=== PATIENT | female | born 1975 | race African-American/Black ===

== ENCOUNTER 2016-07-03 12:56 | Emergency (ER) | payer OTHER ==
[2016-07-03 14:15] VITALS: BP 136/77
[2016-07-03] MEDS ORDERED: Phenazopyridine TAB* 100 MG PO ONE (15:20)
--- NOTE | 2016-07-03 15:49 | UC ---
Complaint Female HPI - HPI Summary HPI Summary: PATIENT IS A HEALTHY 41YO F WHO PRESENTS WITH UTI SYMPTOMS INCLUDING BURNING, URGENCY, FREQUENCY X 3 DAYS. SHE STATES SHE HAS HAD BACTRIM PRESCRIBED TO HER 1 YEAR AGO FOR A UTI BUT DID NOT TAKE THE FULL COURSE AND HAS 10 PILLS LEFT. SHE TOOK ONE DOSE YESTERDAY AFTERNOON, AND 1 THIS MORNING, BUT STATES THE PAIN IS STILL THERE. SHE DENIES FEVER, CHILLS OR SWEATS. DENIES FLANK PAIN AND HISTORY OF KIDNEY STONES OR KIDNEY INFECTION. SHE IS A SMOKER AND IS CURRENTLY ON CHANTIX WHICH HAS DECREASED HER HABIT TO ONCE PER DAY. DENIES STD HISTORY OR POSSIBILITY OF . SHE HAS HAD NO ABNORMAL VAGINAL DISCHARGE AND IS CURRENTLY ON HER MENSES. - History Of Current Complaint Hx Obtained From: Patient Hx Last Menstrual Period: 07/02/16 ?: No Onset/Duration: Gradual Onset Timing: Constant Severity Initially: Moderate Severity Currently: Moderate Pain Intensity: 3 Pain Scale Used: 0-10 Numeric Character: Dull, Burning, Cramping Aggravating Factor(s): Urination Associated Signs And Symptoms: Positive: Negative - Risk Factors Ectopic Risk Factor: Maternal Age ^ 30 Ovarian Torsion Risk Factor: Reproductive Age <Laila Whittington - Last Filed: 07/03/16 15:44> <Emma Nguyen - Last Filed: 07/04/16 06:58> - History Of Current Complaint Chief Complaint: UCGU Stated Complaint: UTI COMPLAINT Time Seen by Provider: 07/03/16 14:15 - Allergies/Home Medications Allergies/Adverse Reactions: Allergies Allergy/AdvReac Type Severity Reaction Status Date / Time No Known Allergies Allergy Verified 07/03/16 14:15 PMH/Surg Hx/FS Hx/Imm Hx Previously Healthy: Yes Cancer History Of: Denies: Breast Cancer - Surgical History Surgical History: None - Family History Known Family History: Positive: Unknown - Social History Occupation: Employed Full-time Lives: With Family Alcohol Use: Rare Substance Use Type: Marijuana Smoking Status (MU): Light Every Day Tobacco Smoker Type: Cigarettes Amount Used/How Often: 2-3 day Have You Smoked in the Last Year: Yes - Immunization History Most Recent Influenza Vaccination: 2013 Most Recent Tetanus Shot: unknown Most Recent Pneumonia Vaccination: never <Laila Whittington - Last Filed: 07/03/16 15:44> Review of Systems Constitutional: Negative Respiratory: Negative Cardiovascular: Negative Genitourinary: Dysuria, Frequency, Urgency Motor: Negative Neurovascular: Negative Neurological: Negative Psychological: Negative All Other Systems Reviewed And Are Negative: Yes <Laila Whittington - Last Filed: 07/03/16 15:44> Physical Exam Triage Information Reviewed: Yes Appearance: Well-Appearing, No Pain Distress, Well-Nourished Vital Signs: Initial Vital Signs Temp 98.7 F 07/03/16 14:09 Pulse 99 07/03/16 14:09 Resp 18 07/03/16 14:09 BP 136/77 07/03/16 14:09 Pulse Ox 99 07/03/16 14:09 Vital Signs Reviewed: Yes Eye Exam: Normal Eyes: Positive: Conjunctiva Clear ENT Exam: Normal Neck exam: Normal Neck: Positive: Supple, Nontender Respiratory: Positive: Chest non-tender, Lungs clear Cardiovascular Exam: Normal Cardiovascular: Positive: RRR Neurological Exam: Normal Neurological: Positive: Alert Psychological: Positive: Normal Response To Family, Age Appropriate Behavior Skin Exam: Normal <Laila Whittington - Last Filed: 07/03/16 15:44> Vital Signs: Initial Vital Signs Temp 98.7 F 07/03/16 14:09 Pulse 99 07/03/16 14:09 Resp 18 07/03/16 14:09 BP 136/77 07/03/16 14:09 Pulse Ox 99 07/03/16 14:09 <Emma Nguyen - Last Filed: 07/04/16 06:58> Complaint Female Dx - Course Course Of Treatment: UA performed. WBC and leuks seen. Labs WNL. Patient experiencing urgency, frequency and pain on urination. Dark urine noted. No abnormal vaginal discharge or bleeding. No CVA tenderness bilaterally. PATIENT WAS GIVEN PYRIDIUM 200MG IN OFFICE FOR RELIEF OF PAIN. PRESCRIPTION SENT. SHE IS CURRENTLY TAKING BACTRIM (WHICH SHE ALREADY HAD AT HOME FROM A PREVIOUS INFECTION) AND IT IS NOT YET . SHE IS ENCOURAGED TO CONTINUE TO TAKE BACTRIM X 5 DAYS AND USE PYRIDIUM IF NEEDED FOR UTI PAIN. RETURN IF SYMPTOMS BECOME WORSE OR FEVER, CHILLS SWEATS DEVELOP. - Differential Dx/Diagnosis Differential Diagnosis/HQI/PQRI: Ovarian Cyst, Pelvic Inflammatory Disease, , Urinary Tract Infection Provider Diagnoses: URINARY TRACT INFECTION <Laila Whittington - Last Filed: 07/03/16 15:44> Discharge <NelsyLaila - Last Filed: 07/03/16 15:44> <Emma Nguyen - Last Filed: 07/04/16 06:58> - Discharge Plan Condition: Stable Disposition: HOME Prescriptions: Phenazopyridine TAB* [Pyridium 100 mg TAB*] 100 mg PO TID #12 tab MDD 3 Patient Education Materials: Urinary Tract Infection in Women (ED) Forms: *Work Release Referrals: Neri Corona MD [Primary Care Provider] - Additional Instructions: Take Bactrim twice daily for 5 days. Take the pyridium medication as needed for bladder pain. Dx. Urinary Tract Infection Drink plenty of fluids. Supplement with cranberry or kimble juice. You may also take an over the counter cranberry supplement. If you have any questions about this, you may ask your pharmacist. If your symptoms have not improved in 1-2 days, if you develop fever, sweats or chills, please go to your emergency room, or call your PCP. Antibiotics were prescribed to you. Please take as directed. Supplement with over the counter probiotics on the opposite schedule of your antibiotic to prevent secondary infections. Do not take together as they may counteract each other. Pyridium: This medication is used to treat pain, burning, increased urination, and increased urge to urinate. These symptoms are usually caused by infection, injury, surgery, catheter, or other conditions that irritate the lower urinary tract. Pyridium will treat the symptoms of a urinary tract infection, but this medication does not treat the actual infection. Take the antibiotic that your doctor prescribes to treat your infection. Pyridium will most likely darken the color of your urine to an orange or red color. This is a normal effect and is not cause for alarm unless you have other symptoms such as pale or yellowed skin, fever, stomach pain, nausea, and vomiting. Darkened urine may also cause stains to your underwear, which may or may not be removed by laundering. It can also permanently stain soft contact lenses, and you should not wear them while taking this medicine. Attestation Statement User Type: Provider - I was available for consult. This patient was seen by the advanced practice provider. The patient was not presented to, seen by, or examined by me.-Janie <Emma Nguyen - Last Filed: 07/04/16 06:58>
== END 2016-07-03 15:54 | disposition home or self-care (01) ==
LOC: UCEAST 12:56
DX: R30.0 Dysuria (principal); N39.0 Urinary tract infection, site not specified; F17.210 Nicotine dependence, cigarettes, uncomplicated
CPT/HCPCS: 81003; 87086; 99212; G0463

== ENCOUNTER 2017-07-20 11:20 | Emergency (ER) | payer OTHER ==
[2017-07-20 12:07] LABS: Urine Appearance Cloudy; Urine Blood Negative (Negative); Urine Color Amber; Urine Ketones Negative (Negative); Urine Protein Negative (Negative); Urine Specific Gravity 1.027 (1.010-1.030); Urine Urobilinogen Positive (Negative)
[2017-07-20] MEDS ORDERED: NS 0.9% 1000 ML* 2,000 ML IV ONE (12:08)
[2017-07-20] MEDS ORDERED: Ondansetron ODT TAB* 4 MG PO ONE (12:08)
[2017-07-20] MEDS ORDERED: Ketorolac INJ* 30 MG/ML 1 ML VIAL IV ONE (12:08)
[2017-07-20 12:27] LABS: ABS Basophils 0.1 10^3/ul (0-0.2); ABS Eosinophils 0.2 10^3/ul (0-0.6); ABS Lymphocytes 3.1 10^3/ul (1.0-4.8); ABS Monocytes 0.8 10^3/ul (0-0.8); ABS Neutrophils 3.8 10^3/ul (1.5-7.7); ABS Nucleated RBC 0 10^3/ul; Eosinophil % 2.3 % (0-6); Hematocrit 37 % (35-47); Hemoglobin 12.3 g/dl (12.0-16.0); Lymphocyte % 39.5 % (25-47); Mean Corpuscular HGB Conc 33 g/dl (31-36); Mean Corpuscular Hemoglobin 29 pg (27-31); Mean Corpuscular Volume 87 fL (80-97); Nucleated Red Blood Cells % 0; Platelet Count 194 10^3/ul (150-450); Red Blood Count 4.28 10^6/ul (4.0-5.4); Red Cell Distribution Width 14 % (10.5-15); White Blood Count 7.9 10^3/ul (3.5-10.8)
--- NOTE | 2017-07-20 12:44 | RAD ---
Indication: Left flank pain. Dual energy PA views of the chest demonstrates no mediastinal shift. Heart is of normal size and configuration. Lung taveras are clear. IMPRESSION: No active cardiopulmonary disease is noted.
[2017-07-20 12:48] LABS: EGFR Non-African American 89.8 (>60)
[2017-07-20 12:50] LABS: INR 0.83 (0.77-1.02)
--- NOTE | 2017-07-20 12:50 | RAD ---
Indication: Left flank pain. CT of the abdomen and pelvis was performed without oral or IV contrast administration. Coronal and sagittal reconstructed images were obtained. The lung bases demonstrate some minimal atelectasis in lung bases. Heart is of normal size without evidence of pericardial effusion. The liver is normal in size. No focal lesions or intrahepatic ductal dilatation is noted. The gallbladder demonstrates no gallstones, pericholecystic fluid or wall thickening. There is no evidence of pancreatic mass or pancreatic ductal dilatation. The spleen is normal in size. No adrenal masses are noted. The kidneys demonstrate no hydronephrosis of either kidney. No hydroureter is noted. No dilated loops of bowel are noted. Aorta and inferior vena cava is unremarkable. No retroperitoneal adenopathy is noted. Dilated loops of bowel are noted. The colon is filled with stool. The uterus is unremarkable. Trace amount of free fluid is noted. No adnexal masses are noted. No hernias are noted. The visualized bony structures are unremarkable. IMPRESSION: Trace fluid fluid in the cul-de-sac. No obstructive uropathy is noted.
[2017-07-20] MEDS ORDERED: cefTRIAXone(*) 1 GM in NS 0.9% 50 ML* 50 ML IVPB ONE (13:26)
[2017-07-20] MEDS ORDERED: HYDROcodone/ACETAMIN 5-325 MG* 1 TAB PO ONE (13:26)
[2017-07-20] MEDS ORDERED: Phenazopyridine TAB* 100 MG PO ONE (13:26)
[2017-07-20] MEDS ORDERED: Sulfamethox/Trimethoprim DS 800/160* TAB PO ONE (13:27)
--- NOTE | 2017-07-20 13:39 | ED ---
[place] Stephanie, scribed for Frankie Farris MD on 07/20/17 at 1211 . Abdominal Pain/Female - HPI Summary HPI Summary: The pt is a 42 y/o F presenting to the ED with c/o L sided flank pain that began on 07/18/17.The pt states her pain radiates across her middle lower back and sometimes to her abdomen. Symptoms include nausea, bloating after PO intake and increased urinary frequency. She denies fever and SOB. Aggravating factors include BM, twisting and movement. She states when her pain is severe it takes her breath away. LKMP was 07/17/17. Her pain is rated as a 5 at the moment and an 8 at its worst. She has been taking ibuprofen every 3 hrs for the last 2 days. - History of Current Complaint Chief Complaint: EDFlankPain Stated Complaint: LT FLANK PAIN Time Seen by Provider: 07/20/17 11:55 Hx Obtained From: Patient Hx Last Menstrual Period: 07/02/16 ?: No Onset/Duration: Gradual Onset, Lasting Days - 3, Still Present Timing: Constant Severity Currently: Moderate Pain Intensity: 5 Pain Scale Used: 0-10 Numeric Location: Flank - L Radiates: Yes Radiates to: Back, LLQ Character: Sharp Aggravating Factor(s): Movement, Other: - twisting, BM Alleviating Factor(s): Nothing Associated Signs and Symptoms: Positive: Nausea, Other: - increased urinary frequency, abd bloating post p/o intake Allergies/Adverse Reactions: Allergies Allergy/AdvReac Type Severity Reaction Status Date / Time No Known Allergies Allergy Verified 07/20/17 11:24 Home Medications: Home Medications Mv-Min/Iron/Folic/Calcium/Vitk [Multivitamin Womens] 1 tab PO DAILY 07/20/17 [ History Confirmed 07/20/17] Omeprazole CAP* [Prilosec CAP* 20 MG] 20 mg PO DAILY 07/20/17 [History Confirmed 07/20/17] PMH/Surg Hx/FS Hx/Imm Hx Sensory History: Denies: Hx Legally Blind EENT History: Denies: Hx Deafness - Cancer History Hx Chemotherapy: No Hx Radiation Therapy: No - Surgical History Surgery Procedure, Year, and Place: NONE Infectious Disease History: No Infectious Disease History: Denies: Traveled Outside the [place] in Last 30 Days - Family History Known Family History: Negative: Renal Disease - Social History Occupation: Employed Full-time Lives: With Family Alcohol Use: Rare Hx Substance Use: Yes Substance Use Type: Reports: Marijuana Hx Tobacco Use: Yes Smoking Status (MU): Light Every Day Tobacco Smoker Type: Cigarettes Amount Used/How Often: 2-3 day Have You Smoked in the Last Year: Yes Review of Systems Negative: Fever Negative: Shortness Of Breath Positive: Abdominal Pain, Nausea, Other - bloating after PO intake Positive: frequency - increased, flank pain - L All Other Systems Reviewed And Are Negative: Yes Physical Exam - Summary Physical Exam Summary: General: Mildly ill-appearing, mild to moderate pain distress Skin: warm, color reflects adequate perfusion, dry Head: normal Eyes: EOMI, JACKELINE ENT: normal Neck: supple, nontender Respiratory: CTA, breath sounds present Cardiovascular: RRR Abdomen: soft, tender in L flank Bowel: present Musculoskeletal: normal, strength/ROM intact Neurological: sensory/motor intact, A&O x3 Psychological: affect/mood appropriate Triage Information Reviewed: Yes Vital Signs On Initial Exam: Initial Vitals Temp Pulse Resp BP Pulse Ox 99.7 F 83 16 129/86 100 07/20/17 11:22 07/20/17 11:22 07/20/17 11:22 07/20/17 11:22 07/20/17 11:22 Vital Signs Reviewed: Yes Diagnostics - Vital Signs Vital Signs Temp Pulse Resp BP Pulse Ox 07/20/17 11:22 99.7 F 83 16 129/86 100 - Laboratory Lab Results: Lab Results 07/20/17 07/20/17 07/20/17 Range/Units 11:55 12:13 12:13 WBC 7.9 (3.5-10.8) 10^3/ul RBC 4.28 (4.0-5.4) 10^6/ul Hgb 12.3 (12.0-16.0) g/dl Hct 37 (35-47) % MCV 87 (80-97) fL MCH 29 (27-31) pg MCHC 33 (31-36) g/dl RDW 14 (10.5-15) % Plt Count 194 (150-450) 10^3/ul MPV 9.0 (7.4-10.4) um3 Neut % (Auto) 47.3 (38-83) % Lymph % (Auto) 39.5 (25-47) % [place] % (Auto) 9.8 H (0-7) % Eos % (Auto) 2.3 (0-6) % Baso % (Auto) 1.1 (0-2) % Absolute Neuts (auto) 3.8 (1.5-7.7) 10^3/ul Absolute Lymphs (auto) 3.1 (1.0-4.8) 10^3/ul Absolute Monos (auto) 0.8 (0-0.8) 10^3/ul Absolute Eos (auto) 0.2 (0-0.6) 10^3/ul Absolute Basos (auto) 0.1 (0-0.2) 10^3/ul Absolute Nucleated RBC 0 10^3/ul Nucleated RBC % 0 INR (Anticoag Therapy) 0.83 (0.77-1.02) APTT 27.9 (26.0-36.3) seconds D-Dimer, Quantitative < 200 (Less Than 230) ng/mL Sodium (139-145) mmol/L Potassium (3.5-5.0) mmol/L Chloride (101-111) mmol/L Carbon Dioxide (22-32) mmol/L Anion Gap (2-11) mmol/L BUN (6-24) mg/dL Creatinine (0.51-0.95) mg/dL Est GFR ( Amer) (>60) Est GFR (Non-Af Amer) (>60) BUN/Creatinine Ratio (8-20) Glucose (70-100) mg/dL Lactic Acid (0.5-2.0) mmol/L Calcium (8.6-10.3) mg/dL Total Bilirubin (0.2-1.0) mg/dL AST (13-39) U/L ALT (7-52) U/L Alkaline Phosphatase (34-104) U/L Troponin I (<0.04) ng/mL C-Reactive Protein (< 5.00) mg/L Total Protein (6.4-8.9) g/dL Albumin (3.2-5.2) g/dL Globulin (2-4) g/dL Albumin/Globulin Ratio (1-3) Lipase (11.0-82.0) U/L TSH (0.34-5.60) mcIU/mL Beta HCG, Quant mIU/mL Urine Color [place] Urine Appearance Cloudy Urine pH 5.0 (5-9) Ur Specific [place] 1.027 (1.010-1.030) Urine Protein Negative (Negative) Urine Ketones Negative (Negative) Urine Blood Negative (Negative) Urine Nitrate Positive A (Negative) Urine Bilirubin Negative (Negative) Urine Urobilinogen Positive A (Negative) Ur Leukocyte Esterase Trace A (Negative) Urine WBC (Auto) 3+(>20/hpf) A (Absent) Urine RBC (Auto) 2+(6-10/hpf) A (Absent) Ur Squamous Epith Cells Present A (Absent) Urine Bacteria 1+ A (Absent) Urine Glucose Negative (Negative) 07/20/17 07/20/17 Range/Units 12:13 12:13 WBC (3.5-10.8) 10^3/ul RBC (4.0-5.4) 10^6/ul Hgb (12.0-16.0) g/dl Hct (35-47) % MCV (80-97) fL MCH (27-31) pg MCHC (31-36) g/dl RDW (10.5-15) % Plt Count (150-450) 10^3/ul MPV (7.4-10.4) um3 Neut % (Auto) (38-83) % Lymph % (Auto) (25-47) % [place] % (Auto) (0-7) % Eos % (Auto) (0-6) % Baso % (Auto) (0-2) % Absolute Neuts (auto) (1.5-7.7) 10^3/ul Absolute Lymphs (auto) (1.0-4.8) 10^3/ul Absolute Monos (auto) (0-0.8) 10^3/ul Absolute Eos (auto) (0-0.6) 10^3/ul Absolute Basos (auto) (0-0.2) 10^3/ul Absolute Nucleated RBC 10^3/ul Nucleated RBC % INR (Anticoag Therapy) (0.77-1.02) APTT (26.0-36.3) seconds D-Dimer, Quantitative (Less Than 230) ng/mL Sodium 139 (139-145) mmol/L Potassium 3.8 (3.5-5.0) mmol/L Chloride 110 (101-111) mmol/L Carbon Dioxide 25 (22-32) mmol/L Anion Gap 4 (2-11) mmol/L BUN 18 (6-24) mg/dL Creatinine 0.71 (0.51-0.95) mg/dL Est GFR ( Amer) 115.5 (>60) Est GFR (Non-Af Amer) 89.8 (>60) BUN/Creatinine Ratio 25.4 H (8-20) Glucose 96 (70-100) mg/dL Lactic Acid 0.6 (0.5-2.0) mmol/L Calcium 8.9 (8.6-10.3) mg/dL Total Bilirubin 0.30 (0.2-1.0) mg/dL AST 18 (13-39) U/L ALT 18 (7-52) U/L Alkaline Phosphatase 46 (34-104) U/L Troponin I 0.00 (<0.04) ng/mL C-Reactive Protein 1.27 (< 5.00) mg/L Total Protein 6.3 L (6.4-8.9) g/dL Albumin 3.8 (3.2-5.2) g/dL Globulin 2.5 (2-4) g/dL Albumin/Globulin Ratio 1.5 (1-3) Lipase 60 (11.0-82.0) U/L TSH 0.81 (0.34-5.60) mcIU/mL Beta HCG, Quant < 0.60 mIU/mL Urine Color Urine Appearance Urine pH (5-9) Ur Specific [place] (1.010-1.030) Urine Protein (Negative) Urine Ketones (Negative) Urine Blood (Negative) Urine Nitrate (Negative) Urine Bilirubin (Negative) Urine Urobilinogen (Negative) Ur Leukocyte Esterase (Negative) Urine WBC (Auto) (Absent) Urine RBC (Auto) (Absent) Ur Squamous Epith Cells (Absent) Urine Bacteria (Absent) Urine Glucose (Negative) Result Diagrams: 07/20/17 12:13 07/20/17 12:13 Lab Statement: Any lab studies that have been ordered have been reviewed, and results considered in the medical decision making process. - Radiology CXR Xray Interpretation: No Acute Changes Radiology Interpretation Completed By: Radiologist - NO ACTIVE CARDIOPULMONARY DISEASE IS NOTED. ED physician has reviewed this report. - CT Abdomen/Pelvis CT Interpretation: No Acute Changes CT Interpretation Completed By: Radiologist - Trace fluid in the cul-de-sac. No obstructive uropathy is noted. ED physician has reviewed this report. Abdominal Pain Fem Course/Dx - Course Course Of Treatment: DISCUSSED RESULTS WITH THE PATIENT. RX BACTRIM, PYRIDIUM AND NORCO. F/U PMD. WE DISCUSSED THE NEED TO RETURN TO THE ED IF SHE GETS WORSE; SHE AGREED. - Diagnoses Provider Diagnoses: Left flank pain, Back pain, UTI (urinary tract infection), Pyelonephritis Discharge - Sign-Out/Discharge Documenting (check all that apply): Discharge/Admit/Transfer - Discharge Plan Condition: Stable Disposition: HOME Prescriptions: HYDROcodone/ACETAMIN 5-325 MG* [[place] 5-325 TAB*] 1 tab PO Q4H PRN #15 tab MDD 6 PRN Reason: Pain Phenazopyridine 200 mg (NF) [Pyridium 200 MG tab *] 200 mg PO TID PRN #10 tab PRN Reason: Pain Sulfamethox/Trimethoprim DS* [Bactrim DS 800/160 TAB*] 1 tab PO BID #20 tab Patient Education Materials: Flank Pain (ED), Back Pain (ED), Urinary Tract Infection in Women (ED), Kidney Infection (ED) Referrals: Neri Corona MD [Primary Care Provider] - Additional Instructions: FOLLOW UP WITH YOUR DOCTOR. RETURN TO THE EMERGENCY DEPARTMENT FOR ANY WORSENING OF YOUR CONDITION; PAIN, YOU FEEL ILL, OR QUESTIONS OR CONCERNS. - Billing Disposition and Condition Condition: STABLE Disposition: HOME The documentation as recorded by the [place] t[place] Stephanie accurately reflects the service I personally performed and the decisions made by me, Frankie Farris MD.
[2017-07-20 14:01] VITALS: BP 112/74
== END 2017-07-20 14:00 | disposition home or self-care (01) ==
LOC: ED 11:20
DX: N39.0 Urinary tract infection, site not specified (principal); N12 Tubulo-interstitial nephritis, not specified as acute or chronic; F17.210 Nicotine dependence, cigarettes, uncomplicated
CPT/HCPCS: 36415; 71045; 74176; 80053; 81003; 81015; 83605; 83690; 84443; 84484; 84702; 85025; 85379; 85610; 85730; 86140; 87086; 96361; 96374; 96375; 99283; A9270-GY; J0696; J1885

== ENCOUNTER 2019-05-11 00:48 | Emergency (ER) | payer SELFPAY ==
[2019-05-11] MEDS ORDERED: Ondansetron INJ* 2 MG/ML VIAL IV ONE (01:11)
[2019-05-11] MEDS ORDERED: Lorazepam PYXIS KEY PRN (01:11)
[2019-05-11] MEDS ORDERED: LORazepam INJ* 2 MG/ML 1 ML VIAL IV PUSH ONE (01:11)
[2019-05-11] MEDS ORDERED: NS 0.9% 1000 ML** 1,000 ML IV ONE (01:11)
[2019-05-11] MEDS ORDERED: Lorazepam PYXIS KEY ONE (01:16)
[2019-05-11 01:30] LABS: ABS Basophils 0.1 10^3/ul (0-0.2); ABS Eosinophils 0.2 10^3/ul (0-0.6); ABS Lymphocytes 2.6 10^3/ul (1.0-4.8); ABS Monocytes 1.1 10^3/ul (0-0.8); ABS Neutrophils 3.8 10^3/ul (1.5-7.7); Eosinophil % 2.3 %; Hematocrit 36 % (35-47); Hemoglobin 12.2 g/dL (12.0-16.0); Lymphocyte % 33.9 %; Mean Corpuscular HGB Conc 34 g/dL (31-36); Mean Corpuscular Hemoglobin 29 pg (27-31); Mean Corpuscular Volume 84 fL (80-97); Mean Platelet Volume 8.9 fL (7.4-10.4); Platelet Count 190 10^3/uL (150-450); Red Blood Count 4.29 10^6 /uL (3.70-4.87); Red Cell Distribution Width 13 % (10-15); White Blood Count 7.8 10^3/uL (3.5-10.8)
--- NOTE | 2019-05-11 01:33 | ED ---
HPI Chest Pain - HPI Summary HPI Summary: 43 year old female presents with chest tightness today. She states the symptoms woke her up out of sleep. States chest tightness is in the center of her chest. She admits to palpitations and shortness of breath. She states that she feels like she has passed out. Denies any vertigo. She states she developed nausea here. No vomiting. No change in vision. Patient has felt this before when she had a panic attack in the past. She denies any family history cardiac disease. Does have family history of blood clots. She is not on control. She is smoker. Does smoke marijuana. No drug use. No recent travel. She has history of acid reflux. no abdominal pain. - History of Current Complaint Chief Complaint: EDDizziness Time Seen by Provider: 05/11/19 01:03 Hx Last Menstrual Period: 07/02/16 Pain Intensity: 0 - Allergy/Home Medications Allergies/Adverse Reactions: Allergies Allergy/AdvReac Type Severity Reaction Status Date / Time No Known Allergies Allergy Verified 05/11/19 00:50 Home Medications: Home Medications Mv-Min/Iron/Folic/Calcium/Vitk [Multivitamin Womens] 1 tab PO DAILY 07/20/17 [ History Confirmed 05/11/19] Omeprazole CAP (NF) [Prilosec CAP* 20 MG] 20 mg PO DAILY 07/20/17 [History Confirmed 05/11/19] PMH/Surg Hx/FS Hx/Imm Hx Endocrine/Hematology History: Denies: Hx Anticoagulant Therapy Cardiovascular History: Reports: Other Cardiovascular Problems/Disorders - HX OF CARDIAC EPISODE Sensory History: Denies: Hx Legally Blind, Hx Deafness Opthamlomology History: Denies: Hx Legally Blind - Cancer History Hx Chemotherapy: No Hx Radiation Therapy: No - Surgical History Surgery Procedure, Year, and Place: NONE - Immunization History Immunizations Up to Date: Yes Infectious Disease History: No Infectious Disease History: Denies: Traveled Outside the [place] in Last 30 Days - Family History Known Family History: Positive: Unknown Negative: Renal Disease - Social History Alcohol Use: Rare Hx Substance Use: Yes Substance Use Type: Reports: Marijuana Hx Tobacco Use: Yes Smoking Status (MU): Light Every Day Tobacco Smoker Type: Cigarettes Amount Used/How Often: 2-3 day Have You Smoked in the Last Year: Yes Review of Systems Negative: Fever Positive: Palpitations, Chest Pain Positive: Shortness Of Breath Neurological/Mental Status: Other - dizziness All Other Systems Reviewed And Are Negative: Yes Physical Exam Triage Information Reviewed: Yes Vital Signs On Initial Exam: Initial Vitals Temp Pulse Resp BP Pulse Ox 98.1 F 122 16 162/110 100 05/11/19 00:50 05/11/19 00:50 05/11/19 00:50 05/11/19 00:50 05/11/19 00:50 Vital Signs Reviewed: Yes Appearance: Positive: Well-Appearing Skin: Positive: Warm, Dry Head/Face: Positive: Normal Head/Face Inspection Eyes: Positive: Normal, EOMI, JACKELINE, Conjunctiva Clear ENT: Positive: Normal ENT inspection, Pharynx normal, TMs normal Respiratory/Lung Sounds: Positive: Clear to Auscultation, Breath Sounds Present Cardiovascular: Positive: Normal, RRR Abdomen Description: Positive: Nontender, Soft Bowel Sounds: Positive: Present Musculoskeletal: Positive: Normal Neurological: Positive: Normal Psychiatric: Positive: Normal Procedures - Sedation Patient Received Moderate/Deep Sedation with Procedure: No Diagnostics - Vital Signs Vital Signs Temp Pulse Resp BP Pulse Ox 05/11/19 01:29 19 05/11/19 00:50 98.1 F 122 16 162/110 100 - Laboratory Lab Results: Lab Results 05/11/19 Range/Units 01:25 WBC 7.8 (3.5-10.8) 10^3/uL RBC 4.29 (3.70-4.87) 10^6 /uL Hgb 12.2 (12.0-16.0) g/dL Hct 36 (35-47) % MCV 84 (80-97) fL MCH 29 (27-31) pg MCHC 34 (31-36) g/dL RDW 13 (10-15) % Plt Count 190 (150-450) 10^3/uL MPV 8.9 (7.4-10.4) fL Neut % (Auto) 48.9 % Lymph % (Auto) 33.9 % [place] % (Auto) 13.6 % Eos % (Auto) 2.3 % Baso % (Auto) 1.3 % Absolute Neuts (auto) 3.8 (1.5-7.7) 10^3/ul Absolute Lymphs (auto) 2.6 (1.0-4.8) 10^3/ul Absolute Monos (auto) 1.1 H (0-0.8) 10^3/ul Absolute Eos (auto) 0.2 (0-0.6) 10^3/ul Absolute Basos (auto) 0.1 (0-0.2) 10^3/ul Absolute Nucleated RBC 0.0 10^3/ul Nucleated RBC % 0.0 Result Diagrams: 05/11/19 01:25 05/11/19 01:25 Lab Statement: Any lab studies that have been ordered have been reviewed, and results considered in the medical decision making process. - Radiology chest Radiology Interpretation Completed By: ED Physician Summary of Radiographic Findings: no active disease - EKG No standard instances Cardiac Rate: Tachycardia EKG Rhythm: Sinus Tachycardia Summary of EKG Findings: sinus tachycardia Re-Evaluation - Re-Evaluation First Eval Re-Evaluation Time: 02:00 Change: Improved Comment: chest tightness has improved and presyncope improved after ativan Chest Pain Course/Dx - Course Course Of Treatment: 43 year old female presents with chest tightness today. She states the symptoms woke her up out of sleep. States chest tightness is in the center of her chest. She admits to palpitations and shortness of breath. She states that she feels like she has passed out. Denies any vertigo. She states she developed nausea here. No vomiting. No change in vision. Patient has felt this before when she had a panic attack in the past. She denies any family history cardiac disease. Does have family history of blood clots. She is not on control. She is smoker. Does smoke marijuana. No drug use. No recent travel. On exam sinus tachycardia noted. Lungs clear to auscultation. Patient appears anxious. wbc normal. d-dimer neg. troponin zero. electrolytes normal. heart score of 1. patient will be signed out to dr castillo pending second troponin - Chest Pain Differential Diagnosis/HQI/PQRI: Angina, Chest Wall, Pulmonary Embolism - Diagnoses Provider Diagnoses: Chest tightness, Dizziness Discharge ED - Sign-Out/Discharge Documenting (check all that apply): Sign-Out Patient Signing out patient TO: Sonia Castillo - Discharge Plan Condition: Stable Disposition: HOME Patient Education Materials: Heart Palpitations (ED), Lightheadedness (ED) Referrals: Neri Corona MD [Primary Care Provider] - 3 Days Additional Instructions: You were seen in the emergency department for palpitations of the heart and lightheadedness. Your x-ray and labs not show cause for this. Please follow up with your primary care doctor in next 2-3 days and return to emergency department for chest pain, trouble breathing, passing out, worsening or concerning symptoms. It was a pleasure taking care of you today. - Billing Disposition and Condition Condition: STABLE Disposition: Home - Attestation Statements Provider Attestation: I have seen the patient with the CORINA and agree with the plan and documentation below except as noted: please see my separate note Sonia Castillo MD
[2019-05-11 01:38] LABS: INR 0.87 (0.82-1.09)
[2019-05-11 01:48] LABS: Albumin 4.5 g/dL (3.2-5.2); Albumin/Globulin Ratio 1.8 (1-3); Calcium 9.5 mg/dL (8.6-10.3); EGFR African American 85.6 (>60); EGFR Non-African American 70.7 (>60); Globulin 2.5 g/dL (2-4); Potassium 3.6 mmol/L (3.5-5.0); Total Bilirubin 0.4 mg/dL (0.2-1.0)
--- NOTE | 2019-05-11 02:48 | ED ---
Progress - Progress Note Progress Note: The patient is a sign-out from [facility], to Dr. Sonia Castillo MD, at change of shift at 0230 on 05/11/19, pending second troponin and disposition. briefly this is a 43-year-old male presented with chest tightness and palpitations. Patient does smoke marijuana. Denies current chest pain. No cardiac risk factors or history. Initial vital signs of tachycardia, resolved with fluids. Patient given 0.5 mg Ativan. CXR unremarkable. Second troponin is negative. Patient is awake, ambulating well w/o unsteady gait. She is safe for d/c. no current pain. Discussed return precautions Re-Evaluation - Re-Evaluation First Eval Re-Evaluation Time: 04:30 Change: Improved Comment: patient ambulating well, steady gait, discussed results, safe for d/c Course/Dx - Diagnoses Provider Diagnoses: Chest tightness, Dizziness Discharge ED - Sign-Out/Discharge Documenting (check all that apply): Patient Departure - Patient will be discharged home., Receiving Sign-Out Receiving patient FROM: Miracle Rhodes - Patient is a sign-out from [facility], at change of shift at 0230 on 05/11/19, pending second troponin and disposition. - Discharge Plan Condition: Stable Disposition: HOME Patient Education Materials: Heart Palpitations (ED), Lightheadedness (ED) Referrals: Neri Corona MD [Primary Care Provider] - 3 Days Additional Instructions: You were seen in the emergency department for palpitations of the heart and lightheadedness. Your x-ray and labs not show cause for this. Please follow up with your primary care doctor in next 2-3 days and return to emergency department for chest pain, trouble breathing, passing out, worsening or concerning symptoms. It was a pleasure taking care of you today. - Billing Disposition and Condition Condition: STABLE Disposition: Home - Attestation Statements Document Initiated by Scribe: Yes Documenting Scribe: Susan Gallardo Provider For Whom Dixie is Documenting (Include Credential): Dr. Sonia Castillo MD Scribe Attestation: I, Susan Gallardo, scribed for Dr. Sonia Castillo MD on 05/11/19 at 0457. Scribe Documentation Reviewed: Yes Provider Attestation: The documentation as recorded by the scribe, Susan Gallardo accurately reflects the service I personally performed and the decisions made by me, Dr. Sonia Castillo MD Status of Scribe Document: Viewed Procedures - Sedation Patient Received Moderate/Deep Sedation with Procedure: No
[2019-05-11 04:58] VITALS: BP 111/74
== END 2019-05-11 04:58 | disposition home or self-care (01) ==
LOC: ED 00:48
DX: R07.89 Other chest pain (principal); R42 Dizziness and giddiness; R00.2 Palpitations; R06.02 Shortness of breath; Z79.899 Other long term (current) drug therapy; Z86.79 Personal history of other diseases of the circulatory system; F17.210 Nicotine dependence, cigarettes, uncomplicated
CPT/HCPCS: 36415; 71045; 80053; 83605; 84484; 85025; 85379; 85610; 93005; 99284; J2060; J2405

== ENCOUNTER 2024-03-28 11:02 | Inpatient (IN) ==
[2024-03-28] MEDS: Lactated Ringers 1000 ml BAG 1,000 ML IV ONE (11:45)
[2024-03-28] MEDS: Ondansetron 4 mg VIAL 2 MG/ML 2 ml VIAL IV ONE (11:45)
[2024-03-28 11:52] LABS: ABS Basophils 0.1 10^3/uL (0.0-0.1); ABS Eosinophils 0.2 10^3/uL (0.0-0.5); ABS Lymphocytes 1.9 10^3/uL (1.0-4.8); ABS Monocytes 1.2 10^3/uL (0.0-0.9); ABS Neutrophils 6.5 10^3/uL (1.5-7.6); Hematocrit 34.4 % (35-45); Hemoglobin 11.1 g/dL (11.5-14.3); Lymphocyte % 19.5 %; Mean Corpuscular Hemoglobin 25.9 pg (27-33); Mean Corpuscular Hgb Conc 32.2 g/dL (31-36); Mean Corpuscular Volume 80.4 fL (80-97); Platelet Count 456 10^3/uL (150-450); Red Blood Count 4.28 10^6/uL (3.63-4.92); Red Cell Distribution Width 13.6 % (12-17)
[2024-03-28 12:41] LABS: Albumin 3.6 g/dL (3.5-5.7); Albumin/Globulin Ratio 1.1 (1-3); C Reactive Protein 214.96 mg/L (<8.01); Calcium 9.4 mg/dL (8.6-10.3); Creatinine, Serum 0.6 mg/dL (0.51-0.95); Globulin 3.3 g/dL (2-4); Potassium 4.2 mmol/L (3.5-5.0); Total Bilirubin 0.3 mg/dL (0.2-1.0); Total Protein 6.9 g/dL (6.4-8.9)
[2024-03-28] MEDS: Morphine 4 MG/ML VIAL (1 ml) IV ONE (12:50)
[2024-03-28] MEDS ORDERED: Morphine 4 MG/ML VIAL (1 ml) ONE (16:15)
[2024-03-28] MEDS: Lactated Ringers 1000 ml BAG 1,000 ML IV SCH (16:18)
[2024-03-28] MEDS: Morphine 2 MG/ML SYRINGE IV ONE (16:19)
[2024-03-28 16:40] LABS: TSH Ultra Thyroid Stim Horm 0.45 mcIU/mL (0.34-5.60)
[2024-03-28 16:47] LABS: Ferritin 126.7 ng/mL (11-307)
[2024-03-28 16:51] LABS: Folate 6.39 ng/mL (5.90-24.80)
[2024-03-28] MEDS ORDERED: Polyethylene Glycol 3350 17 GM PACKET PO PRN (18:40)
[2024-03-28] MEDS ORDERED: Senna TAB 8.6 mg TAB PO PRN (18:40)
[2024-03-28] MEDS ORDERED: Zosyn per Pharmacy NOTE FOLLOW UP SCH (19:00)
[2024-03-28] MEDS: Enoxaparin 40 MG/0.4 ML SYR SUBCUT SCH (19:02)
[2024-03-28 20:00] LABS: Urine Bilirubin No Culture Negative (Negative); Urine Blood No Culture Negative (Negative); Urine Glucose No Culture Negative (Negative); Urine Ketones No Culture Negative (Negative); Urine Leukocytes No Culture 250 (2+) Leu/uL (Negative); Urine Nitrite No Culture Negative (Negative); Urine Protein No Culture 1+ (>=30 mg/dL) (Negative); Urine Specific Gravity No Cx 1.019 (1.002-1.030); Urine Urobilinogen No Cx Negative (Negative)
[2024-03-28] MEDS: Morphine 2 MG/ML SYRINGE IV PRN (20:03)
[2024-03-28] MEDS: Ondansetron 4 mg VIAL 2 MG/ML 2 ml VIAL IV PRN (20:03)
[2024-03-28] MEDS: ZOSYN 3.375 GM x ONE DOSE over 30 miuntes IV (20:04)
[2024-03-28 20:12] LABS: Ur Squamous Epithelial No Cx Present /HPF (Absent); Urine Bacteria No Culture 1+ /HPF (Absent); Urine Red Blood Cell No Cult 3+(>10/hpf) /HPF (0-Trace); Urine White Blood Cell No Cult 2+(11-20/hpf) /HPF (0-Trace)
[2024-03-28 20:20] LABS: Urine Color No Culture Light-Yellow
[2024-03-28] MEDS: Acetaminophen IV 1 GM/100ML 1,000 MG/100 ML BAG IV PRN (22:08)
[2024-03-28] MEDS: ZOSYN 3.375 GM Q8H per EXTENDED INFUSION IV SCH (23:43)
[2024-03-29 01:30] LABS: Hepatitis B Surface Ab Not Immune (Immune); Hepatitis C Antibody Negative (Negative)
[2024-03-29 04:55] LABS: ABS Basophils 0.1 10^3/uL (0.0-0.1); ABS Eosinophils 0.3 10^3/uL (0.0-0.5); ABS Lymphocytes 2.1 10^3/uL (1.0-4.8); ABS Monocytes 1.3 10^3/uL (0.0-0.9); ABS Neutrophils 4.6 10^3/uL (1.5-7.6); Eosinophil % 3.1 %; Hematocrit 30.6 % (35-45); Hemoglobin 10.2 g/dL (11.5-14.3); Mean Corpuscular Hemoglobin 26.5 pg (27-33); Mean Corpuscular Hgb Conc 33.2 g/dL (31-36); Mean Corpuscular Volume 79.8 fL (80-97); Mean Platelet Volume 7.6 fL (7.5-11.2); Platelet Count 382 10^3/uL (150-450); Red Blood Count 3.83 10^6/uL (3.63-4.92); Red Cell Distribution Width 13.7 % (12-17); White Blood Count 8.3 10^3/uL (3.8-11.8)
[2024-03-29 05:26] LABS: Albumin/Globulin Ratio 1.1 (1-3); Calcium 8.5 mg/dL (8.6-10.3); Creatinine, Serum 0.57 mg/dL (0.51-0.95); Globulin 2.8 g/dL (2-4); Potassium 4.3 mmol/L (3.5-5.0); Total Bilirubin 0.3 mg/dL (0.2-1.0); Total Protein 5.8 g/dL (6.4-8.9); eGFR CKD-EPI 111.3 (>60)
[2024-03-29] MEDS ORDERED: Morphine 2 MG/ML SYRINGE IV PRN (11:01)
[2024-03-29] MEDS: HYDROmorphone 0.5 MG/0.5 ML SYRINGE IV ONE (12:39)
[2024-03-29] MEDS: HYDROmorphone 1 MG/1 ML SYRINGE IV ONE (13:28)
[2024-03-29] MEDS: HYDROmorphone 1 MG/1 ML SYRINGE IV PRN ×2 (16:11→21:42)
[2024-03-29] MEDS: ZOSYN 3.375 GM Q8H per EXTENDED INFUSION IV SCH (16:32)
[2024-03-29] MEDS ORDERED: Bismuth Subsalicylate (BTL) 525 MG/30 ML (BULK BTL) PO PRN (16:34)
[2024-03-30 08:22] LABS: ABS Basophils 0.1 10^3/uL (0.0-0.1); ABS Eosinophils 0.2 10^3/uL (0.0-0.5); ABS Lymphocytes 1.6 10^3/uL (1.0-4.8); ABS Monocytes 1.2 10^3/uL (0.0-0.9); ABS Neutrophils 7.4 10^3/uL (1.5-7.6); Eosinophil % 1.9 %; Hematocrit 32.9 % (35-45); Hemoglobin 10.7 g/dL (11.5-14.3); Lymphocyte % 15.6 %; Mean Corpuscular Hemoglobin 26.1 pg (27-33); Mean Corpuscular Hgb Conc 32.6 g/dL (31-36); Mean Corpuscular Volume 80.1 fL (80-97); Mean Platelet Volume 7.9 fL (7.5-11.2); Platelet Count 460 10^3/uL (150-450); Red Blood Count 4.11 10^6/uL (3.63-4.92); Red Cell Distribution Width 13.8 % (12-17); White Blood Count 10.5 10^3/uL (3.8-11.8)
[2024-03-30 09:21] LABS: Albumin 3.4 g/dL (3.5-5.7); Albumin/Globulin Ratio 1.1 (1-3); Calcium 8.9 mg/dL (8.6-10.3); Creatinine, Serum 0.48 mg/dL (0.51-0.95); Globulin 3.2 g/dL (2-4); Magnesium 1.9 mg/dL (1.9-2.7); Potassium 4.6 mmol/L (3.5-5.0); Total Bilirubin 0.3 mg/dL (0.2-1.0); Total Protein 6.6 g/dL (6.4-8.9)
[2024-03-30 09:43] LABS: INR 1.21 (0.85-1.14)
[2024-03-30] MEDS: Polyethylene Glycol 3350 17 GM PACKET PO SCH (13:12)
[2024-03-30] MEDS: Magnesium Hydroxide LIQ 30 ML UDC PO PRN (13:12)
[2024-03-30] MEDS: Senna TAB 8.6 mg TAB PO SCH (20:25)
[2024-03-31 05:54] LABS: ABS Eosinophils 0.1 10^3/uL (0.0-0.5); ABS Lymphocytes 1.1 10^3/uL (1.0-4.8); ABS Monocytes 1.1 10^3/uL (0.0-0.9); ABS Neutrophils 7.7 10^3/uL (1.5-7.6); Eosinophil % 1.1 %; Hematocrit 32.3 % (35-45); Hemoglobin 10.5 g/dL (11.5-14.3); Lymphocyte % 10.8 %; Mean Corpuscular Hemoglobin 25.9 pg (27-33); Mean Corpuscular Hgb Conc 32.4 g/dL (31-36); Mean Corpuscular Volume 79.8 fL (80-97); Mean Platelet Volume 7.5 fL (7.5-11.2); Platelet Count 441 10^3/uL (150-450); Red Blood Count 4.04 10^6/uL (3.63-4.92); Red Cell Distribution Width 13.8 % (12-17); White Blood Count 10.1 10^3/uL (3.8-11.8)
[2024-03-31 06:46] LABS: Albumin 3.4 g/dL (3.5-5.7); Albumin/Globulin Ratio 1.1 (1-3); Calcium 8.7 mg/dL (8.6-10.3); Creatinine, Serum 0.5 mg/dL (0.51-0.95); Globulin 3.2 g/dL (2-4); Magnesium 2.3 mg/dL (1.9-2.7); Potassium 4.7 mmol/L (3.5-5.0); Total Bilirubin 0.4 mg/dL (0.2-1.0); Total Protein 6.6 g/dL (6.4-8.9); eGFR CKD-EPI 114.9 (>60)
[2024-03-31] MEDS ORDERED: Senna TAB 8.6 mg TAB PO PRN (11:32)
[2024-04-01] MEDS: HYDROmorphone 0.5 MG/0.5 ML SYRINGE IV PRN (01:14)
[2024-04-01 06:53] LABS: Hematocrit 33.7 % (35-45); Hemoglobin 11.2 g/dL (11.5-14.3); Mean Corpuscular Hemoglobin 26.8 pg (27-33); Mean Corpuscular Hgb Conc 33.4 g/dL (31-36); Mean Corpuscular Volume 80.1 fL (80-97); Red Cell Distribution Width 13.5 % (12-17); White Blood Count 10.6 10^3/uL (3.8-11.8)
[2024-04-01 07:04] LABS: Albumin 3.6 g/dL (3.5-5.7); Calcium 9.1 mg/dL (8.6-10.3); Creatinine, Serum 0.45 mg/dL (0.51-0.95); Globulin 3.6 g/dL (2-4); Magnesium 2.1 mg/dL (1.9-2.7); Potassium 4.4 mmol/L (3.5-5.0); Total Bilirubin 0.3 mg/dL (0.2-1.0); Total Protein 7.2 g/dL (6.4-8.9); eGFR CKD-EPI 117.9 (>60)
[2024-04-01 07:37] LABS: ABS Eosinophils 0.1 10^3/uL (0.0-0.5); ABS Lymphocytes 1.9 10^3/uL (1.0-4.8); ABS Monocytes 1.5 10^3/uL (0.0-0.9); ABS Neutrophils 7.1 10^3/uL (1.5-7.6); Eosinophil % 1.1 %; Lymphocyte % 18.3 %; Mean Platelet Volume 7.7 fL (7.5-11.2); Platelet Count 531 10^3/uL (150-450)
[2024-04-01] MEDS: Polyethylene Glycol 3350 17 GM PACKET PO PRN (10:47)
[2024-04-01] MEDS: Senna TAB 8.6 mg TAB PO SCH ×2 (12:35→19:46)
[2024-04-01] MEDS: Polyethylene Glycol 3350 17 GM PACKET PO SCH (12:39)
[2024-04-02 05:57] LABS: ABS Eosinophils 0.2 10^3/uL (0.0-0.5); ABS Lymphocytes 1.4 10^3/uL (1.0-4.8); ABS Monocytes 1.2 10^3/uL (0.0-0.9); ABS Neutrophils 5.2 10^3/uL (1.5-7.6); Hematocrit 31.6 % (35-45); Hemoglobin 10.3 g/dL (11.5-14.3); Lymphocyte % 17.9 %; Mean Corpuscular Hemoglobin 26.5 pg (27-33); Mean Corpuscular Hgb Conc 32.7 g/dL (31-36); Mean Corpuscular Volume 80.9 fL (80-97); Mean Platelet Volume 7.6 fL (7.5-11.2); Platelet Count 460 10^3/uL (150-450); Red Cell Distribution Width 13.4 % (12-17)
[2024-04-02 06:14] LABS: Calcium 9.2 mg/dL (8.6-10.3); Creatinine, Serum 0.67 mg/dL (0.51-0.95); Potassium 4.4 mmol/L (3.5-5.0); eGFR CKD-EPI 107.1 (>60)
[2024-04-02 09:59] VITALS: BP 138/81
[2024-04-02 17:02] LABS: Renin <0.6 ng/mL/h
== END 2024-04-02 12:55 | disposition home or self-care (01) | DRG 405 ==
LOC: EDHOLD 11:02 → ED 11:02 → SUATTDRO 15:33 → SSU 03-29 14:40 → MEDTELE 03-30 18:22
PROVIDERS: ADMIT Internal Medicine; ATTEND Internal Medicine

== ENCOUNTER 2024-04-09 17:38 | Inpatient (IN) ==
[2024-04-09] MEDS: Ondansetron 4 mg VIAL 2 MG/ML 2 ml VIAL IV ONE (18:29)
[2024-04-09] MEDS: Lactated Ringers 1000 ml BAG 1,000 ML IV ONE (18:29)
[2024-04-09 18:38] LABS: ABS Basophils 0.1 10^3/uL (0.0-0.1); ABS Eosinophils 0.1 10^3/uL (0.0-0.5); ABS Lymphocytes 1.6 10^3/uL (1.0-4.8); ABS Monocytes 1.4 10^3/uL (0.0-0.9); ABS Neutrophils 9.9 10^3/uL (1.5-7.6); ABS Nucleated RBC 0.01 10^3/ul; Eosinophil % 0.6 %; Hematocrit 29.4 % (35-45); Hemoglobin 9.8 g/dL (11.5-14.3); Lymphocyte % 12.6 %; Mean Corpuscular Hemoglobin 26.5 pg (27-33); Mean Corpuscular Hgb Conc 33.5 g/dL (31-36); Mean Corpuscular Volume 79.1 fL (80-97); Mean Platelet Volume 7.6 fL (7.5-11.2); Nucleated Red Blood Cells % 0.1 %/100WBC (0.0-0.8); Platelet Count 632 10^3/uL (150-450); Red Blood Count 3.72 10^6/uL (3.63-4.92); Red Cell Distribution Width 13.9 % (12-17)
[2024-04-09 19:26] LABS: Albumin 3.5 g/dL (3.5-5.7); Calcium 9.3 mg/dL (8.6-10.3); Creatinine, Serum 0.52 mg/dL (0.51-0.95); Globulin 3.6 g/dL (2-4); Potassium 4.5 mmol/L (3.5-5.0); Total Bilirubin 0.3 mg/dL (0.2-1.0); Total Protein 7.1 g/dL (6.4-8.9); eGFR CKD-EPI 113.8 (>60)
[2024-04-09] MEDS: Morphine 4 MG/ML VIAL (1 ml) IV ONE (19:33)
[2024-04-09] MEDS: HYDROmorphone 1 MG/1 ML SYRINGE IV ONE ×2 (20:50→23:18)
[2024-04-09] MEDS: Iohexol 350 (CONTRAST) 500 ML MDV IV ONE (21:49)
[2024-04-10] MEDS: Ondansetron ODT 4 mg TAB 4 MG TAB SL SCH (01:09)
[2024-04-10] MEDS: Lactated Ringers 1000 ml BAG 1,000 ML IV SCH (01:10)
[2024-04-10] MEDS: Acetaminophen IV 1 GM/100ML 1,000 MG/100 ML BAG IV SCH (02:55)
[2024-04-10] MEDS: Lidocaine PATCH 5% PATCH TRANSDERM SCH (03:34)
[2024-04-10] MEDS: Enoxaparin 40 MG/0.4 ML SYR SUBCUT SCH (06:36)
[2024-04-10 06:59] LABS: Hematocrit 29.2 % (35-45); Hemoglobin 9.6 g/dL (11.5-14.3); Mean Corpuscular Hemoglobin 26.1 pg (27-33); Mean Corpuscular Hgb Conc 33.1 g/dL (31-36); Mean Corpuscular Volume 78.8 fL (80-97); Mean Platelet Volume 7.5 fL (7.5-11.2); Platelet Count 609 10^3/uL (150-450); Red Cell Distribution Width 13.9 % (12-17); White Blood Count 12.8 10^3/uL (3.8-11.8)
[2024-04-10 07:06] LABS: ABS Basophils 0.1 10^3/uL (0.0-0.1); ABS Eosinophils 0.1 10^3/uL (0.0-0.5); ABS Lymphocytes 1.9 10^3/uL (1.0-4.8); ABS Monocytes 1.6 10^3/uL (0.0-0.9); ABS Neutrophils 9.1 10^3/uL (1.5-7.6); Eosinophil % 0.7 %; Lymphocyte % 14.8 %
[2024-04-10 07:28] LABS: Albumin 3.2 g/dL (3.5-5.7); Albumin/Globulin Ratio 0.9 (1-3); Calcium 8.7 mg/dL (8.6-10.3); Creatinine, Serum 0.49 mg/dL (0.51-0.95); Globulin 3.6 g/dL (2-4); Potassium 4.6 mmol/L (3.5-5.0); Total Bilirubin 0.3 mg/dL (0.2-1.0); Total Protein 6.8 g/dL (6.4-8.9); eGFR CKD-EPI 115.5 (>60)
[2024-04-10] MEDS: HYDROmorphone 1 MG/1 ML SYRINGE IV SLOW PU PRN (07:35)
[2024-04-10] MEDS: Magnesium Hydroxide LIQ 30 ML UDC PO ONE (07:56)
[2024-04-10] MEDS: Senna TAB 8.6 mg TAB PO SCH (12:03)
[2024-04-10] MEDS: Ondansetron ODT 4 mg TAB 4 MG TAB SL PRN (19:57)
[2024-04-11] MEDS: Magnesium Hydroxide LIQ 30 ML UDC PO PRN (01:04)
[2024-04-11] MEDS: Prochlorperazine 5 mg/ml 2 ml VIAL (10 mg) IV PRN (03:20)
[2024-04-11] MEDS: Polyethylene Glycol 3350 17 GM PACKET PO SCH (07:50)
[2024-04-11] MEDS: Morphine ER 15 mg TAB ** extended release PO SCH (09:03)
[2024-04-11] MEDS: Magnesium Hydroxide LIQ 30 ML UDC PO SCH (10:27)
[2024-04-11 10:52] LABS: ABS Basophils 0.1 10^3/uL (0.0-0.1); ABS Lymphocytes 1.4 10^3/uL (1.0-4.8); ABS Monocytes 1.4 10^3/uL (0.0-0.9); ABS Neutrophils 8.4 10^3/uL (1.5-7.6); ABS Nucleated RBC 0.01 10^3/ul; Eosinophil % 0.4 %; Hematocrit 31.1 % (35-45); Hemoglobin 10.1 g/dL (11.5-14.3); Lymphocyte % 12.6 %; Mean Corpuscular Hemoglobin 25.7 pg (27-33); Mean Corpuscular Hgb Conc 32.4 g/dL (31-36); Mean Corpuscular Volume 79.1 fL (80-97); Mean Platelet Volume 7.6 fL (7.5-11.2); Nucleated Red Blood Cells % 0.1 %/100WBC (0.0-0.8); Platelet Count 652 10^3/uL (150-450); Red Blood Count 3.92 10^6/uL (3.63-4.92); Red Cell Distribution Width 14.1 % (12-17); White Blood Count 11.3 10^3/uL (3.8-11.8)
[2024-04-11 11:22] LABS: % Iron Saturation 10 % (15-55); .Transferrin 143 mg/dL (203-362); Iron < 20 ug/dL (50-212); Total Iron Binding Capacity 200 mcg/dL (250-450); Unsaturated Iron Binding 180 ug/dL
[2024-04-11 11:48] LABS: Folate 4.39 ng/mL (5.90-24.80)
[2024-04-11 11:49] LABS: Vitamin B12 1136 pg/mL (180-914)
[2024-04-11] MEDS: Scopolamine 1 mg/72hr PATCH TRANSDERM SCH (15:15)
[2024-04-11] MEDS: HYDROmorphone 0.5 MG/0.5 ML SYRINGE IV SLOW PU PRN (15:42)
[2024-04-11] MEDS: Ondansetron 4 mg VIAL 2 MG/ML 2 ml VIAL IV PRN (18:37)
[2024-04-12] MEDS: SMOG Enema (MgOH-NS-Gly-MinO) 330 ML ENEMA PR ONE (14:03)
[2024-04-13 06:49] LABS: ABS Eosinophils 0.1 10^3/uL (0.0-0.5); ABS Lymphocytes 1.4 10^3/uL (1.0-4.8); ABS Monocytes 1.3 10^3/uL (0.0-0.9); ABS Neutrophils 8.4 10^3/uL (1.5-7.6); Eosinophil % 0.6 %; Hematocrit 28.7 % (35-45); Hemoglobin 9.4 g/dL (11.5-14.3); Lymphocyte % 12.7 %; Mean Corpuscular Hemoglobin 26.1 pg (27-33); Mean Corpuscular Hgb Conc 32.9 g/dL (31-36); Mean Corpuscular Volume 79.4 fL (80-97); Mean Platelet Volume 7.5 fL (7.5-11.2); Platelet Count 569 10^3/uL (150-450); Red Blood Count 3.61 10^6/uL (3.63-4.92); Red Cell Distribution Width 14.2 % (12-17); White Blood Count 11.3 10^3/uL (3.8-11.8)
[2024-04-13 07:22] LABS: Creatinine, Serum 0.53 mg/dL (0.51-0.95); Potassium 4.7 mmol/L (3.5-5.0); eGFR CKD-EPI 113.3 (>60)
[2024-04-13 08:35] LABS: HCG Pregnancy 5.3 mIU/mL
[2024-04-13] MEDS: fentaNYL Patch Check Q Shift NOTE FOLLOW UP SCH (17:38)
[2024-04-13] MEDS: fentaNYL PATCH 37.5 MCG/HR(NF) PATCH.TD72 TRANSDERM SCH (19:35)
[2024-04-13] MEDS: fentaNYL PATCH 25 MCG/HR 1 PATCH TRANSDERM SCH (19:48)
[2024-04-13] MEDS ORDERED: fentaNYL PATCH 37.5 MCG/HR(NF) PATCH.TD72 TRANSDERM SCH (20:00)
[2024-04-13] MEDS: fentaNYL PATCH 12 MCG/HR 1 PATCH TRANSDERM SCH (20:21)
[2024-04-15 07:39] LABS: ABS Basophils 0.1 10^3/uL (0.0-0.1); ABS Eosinophils 0.1 10^3/uL (0.0-0.5); ABS Lymphocytes 1.4 10^3/uL (1.0-4.8); ABS Neutrophils 10.7 10^3/uL (1.5-7.6); ABS Nucleated RBC 0.01 10^3/ul; Eosinophil % 0.5 %; Hematocrit 28.1 % (35-45); Hemoglobin 9.1 g/dL (11.5-14.3); Mean Corpuscular Hemoglobin 25.4 pg (27-33); Mean Corpuscular Hgb Conc 32.4 g/dL (31-36); Mean Corpuscular Volume 78.5 fL (80-97); Mean Platelet Volume 7.5 fL (7.5-11.2); Platelet Count 616 10^3/uL (150-450); Red Blood Count 3.58 10^6/uL (3.63-4.92); Red Cell Distribution Width 14.1 % (12-17); White Blood Count 14.2 10^3/uL (3.8-11.8)
[2024-04-15 08:15] LABS: Calcium 9.1 mg/dL (8.6-10.3); Creatinine, Serum 0.51 mg/dL (0.51-0.95); Potassium 4.5 mmol/L (3.5-5.0); eGFR CKD-EPI 114.4 (>60)
[2024-04-17] MEDS: Magnesium Hydroxide LIQ 30 ML UDC PO PRN (05:19)
[2024-04-17 05:42] VITALS: BP 127/95
[2024-04-17 06:18] LABS: ABS Lymphocytes 0.9 10^3/uL (1.0-4.8); ABS Monocytes 1.3 10^3/uL (0.0-0.9); ABS Neutrophils 9.8 10^3/uL (1.5-7.6); ABS Nucleated RBC 0.01 10^3/ul; Eosinophil % 0.2 %; Lymphocyte % 7.7 %; Mean Corpuscular Hemoglobin 25.8 pg (27-33); Mean Corpuscular Hgb Conc 33.2 g/dL (31-36); Mean Corpuscular Volume 77.8 fL (80-97); Mean Platelet Volume 7.6 fL (7.5-11.2); Nucleated Red Blood Cells % 0.1 %/100WBC (0.0-0.8); Platelet Count 585 10^3/uL (150-450); Red Blood Count 3.47 10^6/uL (3.63-4.92); Red Cell Distribution Width 14.2 % (12-17); White Blood Count 12.1 10^3/uL (3.8-11.8)
[2024-04-17 06:34] LABS: Calcium 9.3 mg/dL (8.6-10.3); Creatinine, Serum 0.51 mg/dL (0.51-0.95); Magnesium 1.9 mg/dL (1.9-2.7); Potassium 4.1 mmol/L (3.5-5.0); eGFR CKD-EPI 114.4 (>60)
[2024-04-17] MEDS: HYDROmorphone 0.5 MG/0.5 ML SYRINGE IV SLOW PU ONE (10:18)
== END 2024-04-17 12:55 | disposition home or self-care (01) | DRG 136 ==
LOC: ED 17:38 → EDHOLD 17:38 → MED 04-10 09:17 → SSU 04-10 09:28 → SUATTDRO 04-12 12:45 → MED 04-14 04:45
PROVIDERS: ADMIT Student in an Organized Health Care Education/Training Program; ATTEND Internal Medicine